=== PATIENT | male | born 1975 | race Caucasian/White ===

== ENCOUNTER 2020-02-14 11:05 | Day surgery (SDC) | payer OTHER, SELFPAY ==
[2020-02-09 20:16] VITALS: BMI 29.9
--- NOTE | 2020-02-13 10:47 | HO.ANESPROP2 ---
Documented by User: Gena Pinedo 02/13/20 10:49 HPI - Anesthesia Eval Consult details Narrative: 44yo M for Upper Endoscopy [facility], LAT[facility] Past Medical History Medical History (Updated 02/13/20 @ 10:48 by Gena Pinedo) Afib GERD (gastroesophageal reflux disease) HTN (hypertension) Sleep apnea Surgical History Surgical History (Updated 02/09/20 @ 20:24 by Tiffani Barriga RN) H/O arthroscopy of right knee H/O elbow surgery History of ankle surgery History of shoulder surgery S/P ablation of atrial fibrillation Social History Social History Smoking Status: Never smoker Use of substances other than those prescribed or required for medical reasons: No Advance Directives: Yes Advance Directives Information Provided: Yes Advance Directives on File: No Advance Directives Date on File: 05/08/19 Meds Allergies Allergy/AdvReac Type Severity Reaction Status Date / Time No Known Allergies Allergy Verified 02/09/20 20:25 Home Medications Medication Instructions Recorded Confirmed Type dofetilide 1 cap PO BID 02/09/20 02/09/20 History metoprolol succinate 1 tab PO DAILY 02/09/20 02/09/20 History omeprazole 1 cap PO DAILY 02/09/20 02/09/20 History pantoprazole 1 tab PO BID 02/09/20 02/09/20 History rivaroxaban [Xarelto] 1 tab PO BEDTIME 02/09/20 02/09/20 History Exam Exam Date and Time: February 13, 2020 1047 Height,Weight and Vital Signs: Height 6 ft 3 in Weight 108.862 kg Assessment and Plan Assessment Anesthesia Assessment: Chart Reviewed Documented by User: Cherelle Mitchell 02/14/20 13:16 [facility] Past Medical History Medical History (Updated 02/13/20 @ 10:48 by Gena Pinedo) Afib GERD (gastroesophageal reflux disease) HTN (hypertension) Sleep apnea Surgical History Surgical History (Updated 02/09/20 @ 20:24 by Tiffani Pacitti Boido, RN) H/O arthroscopy of right knee H/O elbow surgery History of ankle surgery History of shoulder surgery S/P ablation of atrial fibrillation Social History Social History Smoking Status: Never smoker Use of substances other than those prescribed or required for medical reasons: No Advance Directives: Yes Advance Directives Information Provided: Yes Advance Directives on File: No Advance Directives Date on File: 05/08/19 Meds Allergies Allergy/AdvReac Type Severity Reaction Status Date / Time No Known Allergies Allergy Verified 02/09/20 20:25 Home Medications Medication Instructions Recorded Confirmed Type dofetilide 1 cap PO BID 02/09/20 02/09/20 History metoprolol succinate 1 tab PO DAILY 02/09/20 02/09/20 History omeprazole 1 cap PO DAILY 02/09/20 02/09/20 History pantoprazole 1 tab PO BID 02/09/20 02/09/20 History rivaroxaban [Xarelto] 1 tab PO BEDTIME 02/09/20 02/09/20 History Exam Airway Mallampati Class: I TM Dist: >3cm Neck ROM: Full Loose/Missing/Broken Teeth: No Heart: RRR Lungs: CTA Assessment and Plan Anesthetic Plan Anesthetic Plan: MAC: Disposition: Standard PACU
[2020-02-14 11:58] VITALS: BP 120/87; PULSE 66; RESP 18; TEMP 36.6; O2SAT 99
[2020-02-14] MEDS: Lactated Ringers 1,000 ML 100 ML IVCONT (12:06)
--- NOTE | 2020-02-14 12:11 | MHC.SHP ---
Pre-Procedural Eval Section A The patient is an INPATIENT: No Changes since office visit: No Cold of Flu in the past 2 weeks, No New Medical Problems, No Changes in Medication and No Patient answered all questions The History & Physical has been completed within 30 days and I have reviewed it.: Yes Section B Chief Complaint: Gerd Allergies: Allergies Allergy/AdvReac Type Severity Reaction Status Date / Time No Known Allergies Allergy Verified 02/09/20 20:25 Plan Patient has been examined and remains a candidate for the planned procedure
[2020-02-14 13:17] VITALS: BP 118/73; PULSE 75; RESP 16; TEMP 36.2; O2SAT 97
[2020-02-14 13:32] VITALS: BP 113/73; PULSE 65; RESP 15; TEMP 36.5; O2SAT 97
--- NOTE | 2020-02-14 13:39 | OP_ITS ---
SURGEON: Giancarlo Velasquez MD PREOPERATIVE DIAGNOSIS: POSTOPERATIVE DIAGNOSIS: PROCEDURE PERFORMED: Upper endoscopy with biopsy. ESTIMATED BLOOD LOSS: COMPLICATIONS: ANESTHESIA: ASSISTANTS: SPECIMENS: INDICATION: Gastroesophageal reflux disease. MEDICATIONS: Monitored anesthesia care. DESCRIPTION OF PROCEDURE: History and physical performed. The risks and benefits of the procedure were explained to the patient, and informed consent was obtained. The patient was placed in the left lateral decubitus position. The Olympus video gastroscope was introduced into the esophagus, stomach, and duodenum. Examination was performed and the scope was removed. He tolerated the procedure well and was taken to recovery in stable condition. FINDINGS: Esophagus: There was mild distal esophagitis with erosions extending up approximately 4 mm to 5 mm above the EG junction. There was no evidence of Wan esophagus. Biopsies were obtained from the EG junction. Stomach: Stomach showed retained food in the body. There were several benign-appearing polyps in the fundus consistent with probable fundic gland polyps. In the antrum, there were several hyperplastic appearing polypoid areas which were biopsied. There was no gastritis and no ulceration was seen. Duodenum: The bulb and second portion were normal. IMPRESSION: Gastroesophageal reflux disease. RECOMMENDATION: Follow up the biopsy results. MD WINSTON Cunningham/KAYE / [id number]
--- NOTE | 2020-02-14 13:48 | PM.OP ---
Brief Operative Note Date of procedure: 02/14/20 Pre-op diagnosis: gerd Post-op diagnosis: same Procedure: egd Surgeon: Giancarlo Velasquez Anesthesia: MAC Estimated blood loss (mL): 5 Pathology: other (antral biopsies, egj biopsies) Condition: stable Disposition: PACU
--- NOTE | 2020-02-14 14:19 | HO.POSTANES ---
Post Anesthesia Evaluation Post Anesthesia Evaluation Vital Signs: Vital Signs Temp Pulse Resp BP Pulse Ox 02/14/20 13:32 97.7 F 65 15 113/73 97 02/14/20 13:17 97.2 F 75 16 118/73 97 02/14/20 11:58 97.9 F 66 18 120/87 99 Anesthesia: Monitored Mental Status: Awake Pain Control: Satisfactory Nausea/Vomiting: None Hydration: Adequate Anesthesia-Related Issues: No Anes. Related Issues
== END 2020-02-14 14:30 | disposition home or self-care (01) ==
PROVIDERS: PCP Family Medicine; Visit Provider Internal Medicine Gastroenterology
PROC: 0DJ08ZZ Inspection of Upper Intestinal Tract, Via Natural or Artificial Opening Endoscopic (ICD-10-PCS; CPT 43235; principal; 2020-02-14 12:00)
DX: K21.00 Gastro-esophageal reflux disease with esophagitis, without bleeding (principal); K31.7 Polyp of stomach and duodenum; R14.0 Abdominal distension (gaseous); I10 Essential (primary) hypertension; I48.91 Unspecified atrial fibrillation; G47.33 Obstructive sleep apnea (adult) (pediatric); J45.909 Unspecified asthma, uncomplicated; Z79.01 Long term (current) use of anticoagulants; Z79.899 Other long term (current) drug therapy
CPT/HCPCS: 43239; 88305; 88342; J2250

== ENCOUNTER 2020-08-27 07:45 | Outpatient (REF) | payer OTHER, SELFPAY ==
--- NOTE | ~2020-08-27 | CT_ITS ---
EXAMINATION: CT ABDOMEN AND PELVIS WITH CONTRAST CLINICAL INFORMATION: Generalized abdominal bloating. COMPARISON: None. TECHNIQUE: Multidetector volumetric images were obtained from the superior aspect of the liver through the pubic symphysis following administration 85 mL of Omnipaque 350 intravenous contrast. Sagittal and coronal reformatted images were obtained on the technologist's workstation. Oral contrast: No This CT examination was performed using dose optimization techniques as appropriate, variously including the following: *Automated exposure control *Adjustment of mA and/or kV according to patient size (this includes techniques or standardized protocols for targeted exams where dose is matched to indication/reason for exam; i.e. extremities or head) *Use of iterative reconstruction technique DLP: 539 mGy-cm. FINDINGS: LUNG BASES: The visualized lung bases are unremarkable. There is a small hiatal hernia. LIVER, GALLBLADDER, AND BILIARY TREE: The liver is normal in size, shape, and attenuation. No focal hepatic lesion or biliary ductal dilatation is present. The gallbladder is unremarkable with no evidence of radiopaque gallstones, gallbladder wall thickening, or obvious pericholecystic inflammatory changes. PANCREAS: Unremarkable. SPLEEN: Unremarkable. ADRENAL GLANDS: Unremarkable. KIDNEYS AND URETERS: The kidneys are normal in size, shape, and attenuation. No hydronephrosis, hydroureter, or calculi seen. No perinephric stranding. BLADDER: Unremarkable. GASTROINTESTINAL TRACT: Opacified colon and small bowel loops are normal caliber. There is no bowel distention seen. There is no free air or free fluid. Appendix is normal caliber. ABDOMINAL WALL: No significant hernia is appreciated. LYMPH NODES: Normal. VASCULAR: Unremarkable. PELVIC VISCERA: The prostate gland is normal size. No free fluid or free air seen. OSSEOUS STRUCTURES: No lytic or sclerotic process seen. There are mild degenerative disc changes at L4-L5 and L5-S1 disc levels. CT/CT abdomen pelvis w con IMPRESSION: No acute intra-abdominal process seen. Small hiatal hernia. Mild constipation.
[2020-08-27] MEDS: iohexoL 350 MG/ML 100 ML INFUS..BTL IV (08:42)
== END 2020-08-27 07:46 | disposition home or self-care (01) ==
LOC: HO.CT 07:45
PROVIDERS: Visit Provider Internal Medicine Gastroenterology
DX: R10.84 Generalized abdominal pain (principal); R14.0 Abdominal distension (gaseous)
CPT/HCPCS: 74177; Q9967

== ENCOUNTER 2020-09-14 07:37 | Day surgery (SDC) | payer OTHER, SELFPAY ==
[2020-09-11 11:03] VITALS: BMI 30.4
--- NOTE | 2020-09-12 13:13 | HO.ANESPROP2 ---
Documented by User: Gena Pinedo 09/12/20 13:15 HPI - Anesthesia Eval Consult details Narrative: 45yo M for Upper Endoscopy Last EGD 02/2020 with HIRO lopez for afib [facility] Past Medical History Medical History (Updated 09/14/20 @ 08:02 by Jacquie Bates) Afib GERD (gastroesophageal reflux disease) HTN (hypertension) Sleep apnea Surgical History Surgical History H/O arthroscopy of right knee H/O elbow surgery History of ankle surgery History of esophagogastroduodenoscopy Hx of repair of left rotator cuff Hx of repair of right rotator cuff S/P ablation of atrial fibrillation Social History Social History Patient Tobacco Use Status: Never used Tobacco Use of substances other than those prescribed or required for medical reasons: No Are you DNR?: No Advance Directives: Yes Advance Directives Information Provided: Yes Advance Directives on File: Yes Advance Directives Date on File: 05/08/19 Meds Allergies Allergy/AdvReac Type Severity Reaction Status Date / Time No Known Allergies Allergy Verified 09/13/20 14:29 Home Medications Medication Instructions Recorded Confirmed Last Taken Type omeprazole 1 cap PO DAILY 02/09/20 09/13/20 Unknown History metoprolol succinate 1 tab PO DAILY 09/13/20 09/13/20 Unknown History pantoprazole 1 tab PO BID 09/13/20 09/13/20 Unknown History Exam Exam Date and Time: September 12, 2020 1313 Height,Weight and Vital Signs: Height 6 ft 3 in Weight 110.223 kg Assessment and Plan Assessment Anesthesia Assessment: Chart Reviewed Documented by User: Jacquie Bates 09/14/20 08:19 [facility] Past Medical History Medical History (Updated 09/14/20 @ 08:02 by Jacquie Bates) Afib GERD (gastroesophageal reflux disease) HTN (hypertension) Sleep apnea Family History Family history of problems with anesthesia: No Surgical History Surgical History H/O arthroscopy of right knee H/O elbow surgery History of ankle surgery History of esophagogastroduodenoscopy Hx of repair of left rotator cuff Hx of repair of right rotator cuff S/P ablation of atrial fibrillation History of Problems with Anesthesia: No Social History Social History Patient Tobacco Use Status: Never used Tobacco Use of substances other than those prescribed or required for medical reasons: No Are you DNR?: No Advance Directives: Yes Advance Directives Information Provided: Yes Advance Directives on File: Yes Advance Directives Date on File: 05/08/19 Meds Allergies Allergy/AdvReac Type Severity Reaction Status Date / Time No Known Allergies Allergy Verified 09/13/20 14:29 Home Medications Medication Instructions Recorded Confirmed Last Taken Type omeprazole 1 cap PO DAILY 02/09/20 09/13/20 Unknown History metoprolol succinate 1 tab PO DAILY 09/13/20 09/13/20 Unknown History pantoprazole 1 tab PO BID 09/13/20 09/13/20 Unknown History Exam Height,Weight and Vital Signs: Vital Signs Temp Pulse Resp BP Pulse Ox 09/14/20 07:56 98.6 F 68 16 150/76 H 97 Airway Mallampati Class: II TM Dist: >3cm Neck ROM: Full Loose/Missing/Broken Teeth: No Heart: RRR Lungs: CTAB Assessment and Plan Assessment Anesthesia Assessment: Anesthesia Plan Discussed and Chart Reviewed Final Anesthetic Review ASA Class: II Final Preanesthetic Review: No Changes in Pt Med Stat, Meds/Allgs Chart Reviewed, Consent Obtained/Reviewed and Anes Risks/Benef Reviewed Patient Risk: Intermediate Procedure Risk: Low Assessment/Block/Sedation in SS: Assess/Block/Sedation-SS Anesthetic Plan Anesthetic Plan: MAC: Disposition: Standard PACU
[2020-09-13 14:25] VITALS: BMI 30.4
[2020-09-14 07:56] VITALS: BP 150/76; PULSE 68; RESP 16; TEMP 37; O2SAT 97
[2020-09-14] MEDS: Lactated Ringers 1,000 ML 100 ML IVCONT (08:11)
[2020-09-14 08:35] VITALS: BP 126/72; PULSE 78; RESP 19; TEMP 36.9; O2SAT 97
--- NOTE | 2020-09-14 08:35 | P.BOP_ITS ---
Brief Operative Note Date of Service: 09/14/20 Pre-op diagnosis: gerd Post-op diagnosis: same Procedure: egd Surgeon: Giancarlo Velasquez Anesthesia: MAC Was an Stripper Apprentice used for this Procedure?: No Estimated blood loss (mL): 2 Pathology: other (aantral bxs, gastric polyp bx, egj bx) Condition: stable Disposition: PACU
[2020-09-14 08:50] VITALS: BP 125/61; PULSE 64; RESP 18; O2SAT 96
[2020-09-14 09:07] VITALS: BP 123/70; PULSE 77; RESP 16; O2SAT 99
--- NOTE | 2020-09-14 09:30 | P.HPSUR_ITS ---
Pre-Procedural Eval Section B Chief Complaint: ulcer of esophagus Details of Present Illness: gerd Relevant Family History (Specify if Yes): No Relevant Social History: None Present Medications: None Medical History: No relevant PMH History of Previous Operations: No relevant previous surgery Allergies: Allergies Allergy/AdvReac Type Severity Reaction Status Date / Time No Known Allergies Allergy Verified 09/13/20 14:29 Review of Systems Sugical H&P ROS: Negative: Constitution, Cardiovascular, Respiratory, Neurological, Psychiatric, Hem-Onc, Allergic/Immunologic, Gastrointestinal, Genitourinary, Musculoskeletal, Integumentary, Endocrine and Eyes/Ears/ Nose/Throat Exam Surgical H&P Exam: Normal: HEENT, Normal: Heart, Normal: Lungs, Normal: Extremities, Normal: Abdomen, Normal: Skin and Normal: Neurological Plan Diagnosis/Plan: Unchanged I have reviewed the history and physical and performed a pertinent physical examination on my patient. No changes have occurred unless specified.
--- NOTE | 2020-09-14 09:38 | OP_ITS ---
SURGEON: Giancarlo Velasquez MD INDICATIONS: Gastroesophageal reflux disease. PREOPERATIVE DIAGNOSIS: POSTOPERATIVE DIAGNOSIS: PROCEDURE PERFORMED: Upper endoscopy with biopsy. ESTIMATED BLOOD LOSS: COMPLICATIONS: ANESTHESIA: Monitored anesthesia care. ASSISTANTS: SPECIMENS: DESCRIPTION OF PROCEDURE: History and physical performed. The risks and benefits of the procedure were explained to the patient, and informed consent was obtained. The patient was placed in left lateral decubitus position. The Olympus video gastroscope was introduced into the esophagus, stomach, and duodenum. Examination was performed. The scope was removed. He tolerated the procedure well and was taken to the recovery area in stable condition. FINDINGS: Esophagus: There were 2 inlet patches in the upper esophagus. There was very mild esophagitis distally. Biopsies were obtained from the EG junction. Stomach: Stomach showed multiple benign-appearing gastric polyps in the body and fundus, 2 of these were biopsied. All were less than 10 mm. Antral biopsies were obtained as the antrum was somewhat nodular, but appeared generally improved from his previous endoscopy. There was no ulceration. Duodenum: The bulb and second portion were normal. IMPRESSION: 1. Gastroesophageal reflux disease. 2. Gastric polyps. RECOMMENDATIONS: Follow up the biopsy results. MD WINSTON Cunningham/KAYE / [id number]
== END 2020-09-14 09:50 | disposition home or self-care (01) ==
PROVIDERS: PCP Family Medicine; Visit Provider Internal Medicine Gastroenterology
PROC: 0DJ08ZZ Inspection of Upper Intestinal Tract, Via Natural or Artificial Opening Endoscopic (ICD-10-PCS; CPT 43235; principal; 2020-09-14 08:50)
DX: K21.9 Gastro-esophageal reflux disease without esophagitis (principal); K20.80 Other esophagitis without bleeding; K31.7 Polyp of stomach and duodenum; Q39.8 Other congenital malformations of esophagus; I48.91 Unspecified atrial fibrillation; I10 Essential (primary) hypertension; G47.30 Sleep apnea, unspecified; Z99.89 Dependence on other enabling machines and devices
CPT/HCPCS: 43239; 88305; 88342

== ENCOUNTER 2022-12-05 07:58 | Day surgery (SDC) | payer OTHER, SELFPAY ==
--- NOTE | 2022-12-03 13:18 | HO.ANESPROP2 ---
Documented by User: Gena Pinedo NP 12/03/22 13:19 HPI - Anesthesia Eval Consult details Narrative: 47yo M for Colonoscopy afib s/p Pulm Vein RF ablation. No OAC PMFSH Past Medical History Medical History (Updated 12/04/22 @ 06:55 by Sushila Quintero RN) Afib Anxiety and depression GERD (gastroesophageal reflux disease) Heart failure HTN (hypertension) IBS (irritable bowel syndrome) Sleep apnea Family History Family history of problems with anesthesia: No Surgical History Surgical History H/O arthroscopy of right knee H/O elbow surgery History of ankle surgery History of esophagogastroduodenoscopy Hx of repair of left rotator cuff Hx of repair of right rotator cuff S/P ablation of atrial fibrillation History of Problems with Anesthesia: No Social History Social History Patient Tobacco Use Status: Never used Tobacco Use of substances other than those prescribed or required for medical reasons: No Advance Directives: No Advance Directives Information Provided: Yes Advance Directives Date on File: 05/08/19 Meds Allergies Allergy/AdvReac Type Severity Reaction Status Date / Time No Known Allergies Allergy Verified 09/13/20 14:29 Home Medications Medication Instructions Recorded Confirmed Last Taken Type pantoprazole 40 mg tablet,delayed 1 tab PO BID 09/13/20 12/05/22 Unknown History release albuterol sulfate 90 mcg/actuation 2 puff inhalation Q4H PRN unknown 12/05/22 12/05/22 Unknown History aerosol inhaler dicyclomine 20 mg tablet 20 mg PO 12/05/22 Unknown History sertraline 50 mg tablet 50 mg PO DAILY 12/05/22 12/05/22 Unknown History testosterone cypionate 200 mg/mL 200 mg IM Q2W 12/05/22 12/05/22 Unknown History intramuscular oil zolpidem 10 mg tablet 10 mg PO BEDTIME PRN Insomnia 12/05/22 12/05/22 Unknown History Exam Exam Date and Time: December 03, 2022 6468 Assessment and Plan Assessment Anesthesia Assessment: Chart Reviewed Final Anesthetic Review Family History of Problems with Anesthesia: No History of Problems with Anesthesia: No Documented by User: Kit Bonilla MD 12/05/22 08:43 [facility] Past Medical History Medical History (Updated 12/04/22 @ 06:55 by Sushila Quintero RN) Afib Anxiety and depression GERD (gastroesophageal reflux disease) Heart failure HTN (hypertension) IBS (irritable bowel syndrome) Sleep apnea Surgical History Surgical History H/O arthroscopy of right knee H/O elbow surgery History of ankle surgery History of esophagogastroduodenoscopy Hx of repair of left rotator cuff Hx of repair of right rotator cuff S/P ablation of atrial fibrillation Social History Social History Patient Tobacco Use Status: Never used Tobacco Use of substances other than those prescribed or required for medical reasons: No Advance Directives: No Advance Directives Information Provided: Yes Advance Directives Date on File: 05/08/19 Meds Allergies Allergy/AdvReac Type Severity Reaction Status Date / Time No Known Allergies Allergy Verified 09/13/20 14:29 Home Medications Medication Instructions Recorded Confirmed Last Taken Type pantoprazole 40 mg tablet,delayed 1 tab PO BID 09/13/20 12/05/22 Unknown History release albuterol sulfate 90 mcg/actuation 2 puff inhalation Q4H PRN unknown 12/05/22 12/05/22 Unknown History aerosol inhaler dicyclomine 20 mg tablet 20 mg PO 12/05/22 Unknown History sertraline 50 mg tablet 50 mg PO DAILY 12/05/22 12/05/22 Unknown History testosterone cypionate 200 mg/mL 200 mg IM Q2W 12/05/22 12/05/22 Unknown History intramuscular oil zolpidem 10 mg tablet 10 mg PO BEDTIME PRN Insomnia 12/05/22 12/05/22 Unknown History Exam Airway Mallampati Class: II TM Dist: >3cm Neck ROM: Full Heart: rrr Lungs: cta Assessment and Plan Final Anesthetic Review NPO: Yes ASA Class: II Final Preanesthetic Review: No Changes in Pt Med Stat, Meds/Allgs Chart Reviewed, Consent Obtained/Reviewed and Anes Risks/Benef Reviewed Patient Risk: Low Procedure Risk: Low Anesthetic Plan Anesthetic Plan: MAC: and Agree w/ Assess. and Plan Disposition: Standard PACU
[2022-12-05 08:05] VITALS: BMI 29.4
[2022-12-05 08:15] VITALS: BP 138/93; PULSE 71; RESP 16; TEMP 36.1; O2SAT 98
[2022-12-05] MEDS: Lactated Ringers 1,000 ML 100 ML IVCONT (08:29)
--- NOTE | 2022-12-05 09:19 | MHC.SHP ---
Pre-Procedural Eval Section A Date of Service: 12/05/22 Section B Chief Complaint: Hemorrhage of anus and rectum, Change Details of Present Illness: see h&p no changes Relevant Family History (Specify if Yes): No Relevant Social History: None Present Medications: see Short Stay Collaborative assessment Medical History: No relevant PMH History of Previous Operations: No relevant previous surgery Allergies: Allergies Allergy/AdvReac Type Severity Reaction Status Date / Time No Known Allergies Allergy Verified 09/13/20 14:29 Review of Systems Sugical H&P ROS: Negative: Constitution, Cardiovascular, Respiratory, Neurological, Psychiatric, Hem-Onc, Allergic/Immunologic, Gastrointestinal, Genitourinary, Musculoskeletal, Integumentary, Endocrine and Eyes/Ears/Nose/Throat Exam Surgical H&P Exam: Normal: HEENT, Normal: Heart, Normal: Lungs, Normal: Extremities, Normal: Abdomen, Normal: Skin and Normal: Neurological Plan Diagnosis/Plan: Unchanged I have reviewed the history and physical and performed a pertinent physical examination on my patient. No changes have occurred unless specified. Time Spent With Patient Time: Total time managing care of this patient today ____ minutes.
--- NOTE | 2022-12-05 10:02 | P.BOP_ITS ---
Brief Operative Note Date of Service: 12/05/22 Pre-op diagnosis: rectal bleeding change in bowels Post-op diagnosis: same Procedure: colnoscopy Surgeon: Giancarlo Velasquez Anesthesia: MAC Was an Weight Reduction Specialist used for this Procedure?: No Estimated blood loss (mL): 2 Pathology: other Condition: stable Disposition: PACU
[2022-12-05 10:04] VITALS: BP 129/82; PULSE 79; RESP 6; TEMP 36.1; O2SAT 96
[2022-12-05 10:19] VITALS: BP 124/92; PULSE 76; RESP 20; TEMP 36.3; O2SAT 97
--- NOTE | 2022-12-05 10:58 | OP_ITS ---
DATE OF SERVICE: 12/05/2022 SURGEON: Giancarlo Velasquez MD INDICATIONS: Change in bowel habits and rectal bleeding. PREOPERATIVE DIAGNOSIS: POSTOPERATIVE DIAGNOSIS: PROCEDURE PERFORMED: Colonoscopy to the terminal ileum and biopsy. ESTIMATED BLOOD LOSS: COMPLICATIONS: ANESTHESIA: Monitored anesthesia care. ASSISTANTS: SPECIMENS: DESCRIPTION OF PROCEDURE: A history and physical was performed. The risks and benefits of the procedure were explained to the patient. Informed consent was obtained. The patient was placed in the left lateral decubitus position. A digital rectal exam was performed and was found to be normal. The Olympus pediatric videocolonoscope was introduced into the rectum and advanced to the cecum. The cecum was identified by transillumination, palpation, and identification of ileocecal valve. Examination was performed. The scope was removed. he tolerated the procedure well and was returned to the recovery area in stable condition. FINDINGS: The terminal ileum was normal. The visualized colonic mucosa was normal. The quality of the prep was good. Random sigmoid biopsies were obtained because of the patient's change in bowel habits. Retroflexed examination showed moderate sized internal hemorrhoids. IMPRESSION: Normal colonoscopy. RECOMMENDATION: 1. Follow up as needed. 2. Repeat colonoscopy is recommended in 10 years for average risk individuals. MD WINSTON Cunningham/KAYE / [id number]
== END 2022-12-05 10:32 | disposition home or self-care (01) ==
PROVIDERS: PCP Family Medicine; Visit Provider Internal Medicine Gastroenterology
PROC: 0DJD8ZZ Inspection of Lower Intestinal Tract, Via Natural or Artificial Opening Endoscopic (ICD-10-PCS; CPT 45378; principal; 2022-12-05 09:00)
DX: K62.5 Hemorrhage of anus and rectum (principal); R19.4 Change in bowel habit; K64.8 Other hemorrhoids; K21.9 Gastro-esophageal reflux disease without esophagitis; I11.0 Hypertensive heart disease with heart failure; I50.20 Unspecified systolic (congestive) heart failure; I48.91 Unspecified atrial fibrillation; J45.909 Unspecified asthma, uncomplicated; G47.33 Obstructive sleep apnea (adult) (pediatric); F32.A Depression, unspecified; F41.1 Generalized anxiety disorder; Z96.9 Presence of functional implant, unspecified; Z79.899 Other long term (current) drug therapy; Z98.890 Other specified postprocedural states
CPT/HCPCS: 45380; 88305

== ENCOUNTER 2023-12-09 12:51 | Day surgery (SDC) | payer OTHER, SELFPAY ==
[2023-12-09 13:49] VITALS: BMI 29.9
[2023-12-09 13:58] VITALS: BP 154/100; PULSE 80; RESP 16; TEMP 37; O2SAT 99
[2023-12-09] MEDS: Lactated Ringers 1,000 ML 50 ML IVCONT (14:02)
--- NOTE | 2023-12-09 15:05 | P.CONAN_ITS ---
Documented by User: Gena Pinedo NP 12/08/23 13:27 HPI - Anesthesia Eval Consult details Narrative: 48yo M for Upper Endoscopy Afib s/p ablation, No OAC PMFSH Past Medical History Medical History (Updated 12/04/22 @ 06:55 by Sushila Quintero RN) IBS (irritable bowel syndrome) Heart failure Anxiety and depression Afib GERD (gastroesophageal reflux disease) Sleep apnea HTN (hypertension) Family History Family history of problems with anesthesia: No Surgical History Surgical History Hx of repair of right rotator cuff Hx of repair of left rotator cuff History of esophagogastroduodenoscopy History of ankle surgery H/O elbow surgery H/O arthroscopy of right knee S/P ablation of atrial fibrillation History of Problems with Anesthesia: No Social History Social History Are you a primary coronary care unit nurse to a significant other at home: No Do you presently have visiting nurse or other home services: No Patient Tobacco Use Status: Never used Tobacco Use of substances other than those prescribed or required for medical reasons: No Have you been hit, kicked, punched, or otherwise hurt by someone within the past year? If so, by whom?: No Are you DNR?: No Advance Directives: No Advance Directives Information Provided: Yes Advance Directives Date on File: 05/08/19 Recently lost weight without trying: No Meds Allergies Allergy/AdvReac Type Severity Reaction Status Date / Time No Known Allergies Allergy Verified 09/13/20 14:29 Home Medications ?Medication ?Instructions ?Recorded ?Confirmed ?Last Taken ?Type pantoprazole 40 mg tablet,delayed 1 tab PO BID 09/13/20 12/05/22 12/09/23 History release albuterol sulfate 90 mcg/actuation 2 puff inhalation Q4H PRN unknown 12/05/22 12/05/22 Unknown History aerosol inhaler dicyclomine 20 mg tablet 20 mg PO 12/05/22 Unknown History sertraline 50 mg tablet 50 mg PO DAILY 12/05/22 12/05/22 Unknown History testosterone cypionate 200 mg/mL 200 mg IM Q2W 12/05/22 12/05/22 Unknown History intramuscular oil zolpidem 10 mg tablet 10 mg PO BEDTIME PRN Insomnia 12/05/22 12/05/22 Unknown History Assessment and Plan Assessment Anesthesia Assessment: Chart Reviewed Final Anesthetic Review Family History of Problems with Anesthesia: No History of Problems with Anesthesia: No Documented by User: Rufina Solitario, 12/09/23 15:06 PENDING SALE TO [facility] Past Medical History Medical History (Updated 12/04/22 @ 06:55 by Sushila Quintero RN) IBS (irritable bowel syndrome) Heart failure Anxiety and depression Afib GERD (gastroesophageal reflux disease) Sleep apnea HTN (hypertension) Family History Family history of problems with anesthesia: No Surgical History Surgical History Hx of repair of right rotator cuff Hx of repair of left rotator cuff History of esophagogastroduodenoscopy History of ankle surgery H/O elbow surgery H/O arthroscopy of right knee S/P ablation of atrial fibrillation History of Problems with Anesthesia: No Social History Social History Are you a primary coronary care unit nurse to a significant other at home: No Do you presently have visiting nurse or other home services: No Patient Tobacco Use Status: Never used Tobacco Use of substances other than those prescribed or required for medical reasons: No Have you been hit, kicked, punched, or otherwise hurt by someone within the past year? If so, by whom?: No Are you DNR?: No Advance Directives: No Advance Directives Information Provided: Yes Advance Directives Date on File: 05/08/19 Recently lost weight without trying: No Meds Allergies Allergy/AdvReac Type Severity Reaction Status Date / Time No Known Allergies Allergy Verified 09/13/20 14:29 Home Medications ?Medication ?Instructions ?Recorded ?Confirmed ?Last Taken ?Type pantoprazole 40 mg tablet,delayed 1 tab PO BID 09/13/20 12/05/22 12/09/23 History release albuterol sulfate 90 mcg/actuation 2 puff inhalation Q4H PRN unknown 12/05/22 12/05/22 Unknown History aerosol inhaler dicyclomine 20 mg tablet 20 mg PO 12/05/22 Unknown History sertraline 50 mg tablet 50 mg PO DAILY 12/05/22 12/05/22 Unknown History testosterone cypionate 200 mg/mL 200 mg IM Q2W 12/05/22 12/05/22 Unknown History intramuscular oil zolpidem 10 mg tablet 10 mg PO BEDTIME PRN Insomnia 12/05/22 12/05/22 Unknown History Exam Exam Date and Time: 12/09/23 1500 Height,Weight and Vital Signs: Height 6 ft 3 in Weight 108.59 kg Vital Signs Temperature 98.6 F 12/09/23 13:58 Pulse Rate 80 12/09/23 13:58 Respiratory Rate 16 12/09/23 13:58 Blood Pressure 154/100 H 12/09/23 13:58 Pulse Oximetry 99 12/09/23 13:58 Oxygen Delivery Method Room Air 12/09/23 13:58 Temperature 98.6 F 12/09/23 13:58 Pulse Rate 80 12/09/23 13:58 Respiratory Rate 16 12/09/23 13:58 Blood Pressure 154/100 H 12/09/23 13:58 Pulse Oximetry 99 12/09/23 13:58 Oxygen Delivery Method Room Air 12/09/23 13:58 Airway Mallampati Class: II TM Dist: >3cm Neck ROM: Full Loose/Missing/Broken Teeth: No (patient denies any loose or broken teeth) Heart: S1S2 Lungs: CTAB Assessment and Plan Assessment Anesthesia Assessment: Anesthesia Plan Discussed and Chart Reviewed Final Anesthetic Review Family History of Problems with Anesthesia: No History of Problems with Anesthesia: No NPO: Yes ASA Class: II Final Preanesthetic Review: No Changes in Pt Med Stat, Meds/Allgs Chart Reviewed, Consent Obtained/Reviewed and Anes Risks/Benef Reviewed Patient Risk: Intermediate Procedure Risk: Low Anesthetic Plan Anesthetic Plan: MAC: and Agree w/ Assess. and Plan Disposition: Standard PACU
--- NOTE | 2023-12-09 15:54 | MHC.SHP ---
Pre-Procedural Eval Section A - 24 Hr Update-Section A only Date of Service: 12/09/23 Section B - Complete if H&P > 30 days Chief Complaint: gerd, Details of Present Illness: see H&P no changes Relevant Family History (Specify if Yes): No Relevant Social History: None Present Medications: see Short Stay Collaborative assessment Medical History: No relevant PMH History of Previous Operations: No relevant previous surgery Allergies: Allergies Allergy/AdvReac Type Severity Reaction Status Date / Time No Known Allergies Allergy Verified 09/13/20 14:29 Review of Systems Sugical H&P ROS: Negative: Constitution, Cardiovascular, Respiratory, Neurological, Psychiatric, Hem-Onc, Allergic/Immunologic, Gastrointestinal, Genitourinary, Musculoskeletal, Integumentary, Endocrine and Eyes/Ears/Nose/Throat Exam Surgical H&P Exam: Normal: HEENT, Normal: Heart, Normal: Lungs, Normal: Extremities, Normal: Abdomen, Normal: Skin and Normal: Neurological Plan Diagnosis/Plan: Unchanged I have reviewed the history and physical and performed a pertinent physical examination on my patient. No changes have occurred unless specified. Time Spent With Patient Time: Total time managing care of this patient today ____ minutes.
[2023-12-09 16:19] VITALS: BP 132/91; PULSE 93; RESP 14; TEMP 36.2; O2SAT 95
[2023-12-09 16:24] VITALS: BP 141/99; PULSE 95; RESP 15; O2SAT 96
[2023-12-09 16:29] VITALS: BP 145/90; PULSE 90; RESP 15; O2SAT 97
[2023-12-09 16:34] VITALS: BP 140/87; PULSE 89; RESP 14; O2SAT 98
[2023-12-09 16:49] VITALS: BP 138/89; PULSE 88; RESP 16; TEMP 36.2; O2SAT 99
--- NOTE | 2023-12-09 20:36 | OP_ITS ---
DATE OF SERVICE: 12/09/2023 SURGEON: Giancarlo Velasquez MD INDICATIONS: Gastroesophageal reflux disease. PREOPERATIVE DIAGNOSIS: POSTOPERATIVE DIAGNOSIS: PROCEDURE PERFORMED: Upper endoscopy with biopsy. ESTIMATED BLOOD LOSS: COMPLICATIONS: ANESTHESIA: Monitored anesthesia care. ASSISTANTS: SPECIMENS: DESCRIPTION OF PROCEDURE: A history and physical performed. The risks and benefits of the procedure were explained to the patient and informed consent was obtained. The patient was placed in the left lateral decubitus position. The Olympus videogastroscope was introduced into the esophagus, stomach, and duodenum. Examination was performed. The scope was removed. He tolerated the procedure well and was returned to recovery area in stable condition. FINDINGS: Esophagus; the esophagus showed distal esophagitis that was mild. There was a 5 cm hiatal hernia. Biopsies were obtained from the EG junction. Stomach; the stomach showed no evidence of masses, ulcers, or polyps. Antral biopsies were obtained to evaluate for H pylori. Duodenum; the bulb and 2nd portion were normal. Biopsies were obtained from the 2nd portion. IMPRESSION: 1. Gastroesophageal reflux disease with esophagitis. 2. Hiatal hernia. RECOMMENDATION: Follow up the biopsy results. MD WINSTON Cunningham/KAYE / [id number]
== END 2023-12-09 16:59 | disposition home or self-care (01) ==
PROVIDERS: PCP Family Medicine; Visit Provider Internal Medicine Gastroenterology
PROC: 0DJ08ZZ Inspection of Upper Intestinal Tract, Via Natural or Artificial Opening Endoscopic (ICD-10-PCS; CPT 43235; principal; 2023-12-09 14:50)
DX: K21.9 Gastro-esophageal reflux disease without esophagitis (principal); K20.80 Other esophagitis without bleeding; K44.9 Diaphragmatic hernia without obstruction or gangrene; K29.50 Unspecified chronic gastritis without bleeding; I48.91 Unspecified atrial fibrillation; I11.0 Hypertensive heart disease with heart failure; I50.20 Unspecified systolic (congestive) heart failure; J45.909 Unspecified asthma, uncomplicated; G47.33 Obstructive sleep apnea (adult) (pediatric); F41.8 Other specified anxiety disorders; K58.9 Irritable bowel syndrome, unspecified; Z79.899 Other long term (current) drug therapy; Z88.8 Allergy status to other drugs, medicaments and biological substances; Z98.890 Other specified postprocedural states
CPT/HCPCS: 43239; 88305; 88313; 88342; J1100; J1596; J2250; J2704